=== PATIENT | male | born 1990 | race Caucasian/White ===

== ENCOUNTER 2020-09-25 02:44 | Emergency (ER) | payer OTHER ==
[2020-09-25] MEDS ORDERED: CODEINE 30MG/APAP 300MG TAB ONE (03:26)
--- NOTE | 2020-09-25 03:40 | EDPHYS ---
Physician Documentation [facility] Name: Vicente Elkins Age: 30 yrs Sex: Male : 1990 Arrival Date: 09/25/2020 Time: 02:49 Bed 20 Private MD: Denae Davis ED Physician Shiva Azar HPI: 09/25 03:26 This 30 yrs old Male presents to ER via Ambulatory with complaints of mh7 Toothache. 03:26 The patient presents with pain. The problem is located in the left lower posterior mh7 tooth. Onset: The symptoms/episode began/occurred 2 day(s) ago. Duration: The symptoms are continuous, and are unchanged since they started. Modifying factors: The symptoms are alleviated by nothing, the symptoms are aggravated by chewing, cold fluids, food. Associated signs and symptoms: Pertinent negatives: anorexia, chills, dysphagia, fever, inability to eat, nausea, redness in area, swelling, vomiting. Severity of symptoms: At their worst the symptoms were moderate, yesterday, in the emergency department the symptoms are unchanged. The patient has experienced similar episodes in the past, a few times. Historical: - Allergies: 03:08 No Known Allergies; rr5 - Home Meds: 03:08 None [Active]; rr5 - PMHx: 03:08 Hypertension; rr5 - PSHx: 03:08 foot surgery; rr5 - Immunization history:: Adult Immunizations unknown. - Social history:: Smoking status: Reported history of juuling and/or vaping. Patient uses alcohol, weekly. Patient/guardian denies using street drugs. ROS: 03:26 Constitutional: Negative for fever, chills, and weight loss, Eyes: Negative for injury, mh7 pain, redness, and discharge, ENT: Negative for injury, pain, and discharge, Neck: Negative for injury, pain, and swelling, Cardiovascular: Negative for chest pain, palpitations, and edema, Respiratory: Negative for shortness of breath, cough, wheezing, and pleuritic chest pain, Abdomen/GI: Negative for abdominal pain, nausea, vomiting, diarrhea, and constipation, Back: Negative for injury and pain, : Negative for injury, bleeding, discharge, and swelling, MS/Extremity: Negative for injury and deformity, Skin: Negative for injury, rash, and discoloration, Neuro: Negative for headache, weakness, numbness, tingling, and seizure, Psych: Negative for depression, anxiety, suicide ideation, homicidal ideation, and hallucinations, Allergy/Immunology: Negative for hives, rash, and allergies, Endocrine: Negative for neck swelling, polydipsia, polyuria, polyphagia, and marked weight changes, Hematologic/Lymphatic: Negative for swollen nodes, abnormal bleeding, and unusual bruising. Exam: 03:26 Head/Face: Normocephalic, atraumatic. Eyes: Pupils equal round and reactive to light, mh7 extra-ocular motions intact. Lids and lashes normal. Conjunctiva and sclera are non-icteric and not injected. Cornea within normal limits. Periorbital areas with no swelling, redness, or edema. 03:26 Neck: Trachea midline, no thyromegaly or masses palpated, and no cervical lymphadenopathy. Supple, full range of motion without nuchal rigidity, or vertebral point tenderness. No Meningismus. Chest/axilla: Normal chest wall appearance and motion. Nontender with no deformity. No lesions are appreciated. Cardiovascular: Regular rate and rhythm with a normal S1 and S2. No gallops, murmurs, or rubs. Normal PMI, no JVD. No pulse deficits. Respiratory: Lungs have equal breath sounds bilaterally, clear to auscultation and percussion. No rales, rhonchi or wheezes noted. No increased work of breathing, no retractions or nasal flaring. Abdomen/GI: Soft, non-tender, with normal bowel sounds. No distension or tympany. No guarding or rebound. No evidence of tenderness throughout. Back: No spinal tenderness. No costovertebral tenderness. Full range of motion. Skin: Warm, dry with normal turgor. Normal color with no rashes, no lesions, and no evidence of cellulitis. MS/ Extremity: Pulses equal, no cyanosis. Neurovascular intact. Full, normal range of motion. Neuro: Awake and alert, GCS 15, oriented to person, place, time, and situation. Cranial nerves II-XII grossly intact. Motor strength 5/5 in all extremities. Sensory grossly intact. Cerebellar exam normal. Normal gait. Psych: Awake, alert, with orientation to person, place and time. Behavior, mood, and affect are within normal limits. 03:26 Constitutional: The patient appears in no acute distress, alert, awake, uncomfortable. 03:26 ENT: External ear(s): are unremarkable, Nose: is normal, Mouth: is normal, Posterior pharynx: is normal, airway is patent, Dental exam: abscess, is not appreciated, avulsion, cellulitis, is not appreciated, dental caries, that is moderate, specifically in the upper right first molar (#3), lower left second molar (#18) and lower right first molar (#30), fractured teeth are noted, not appreciated, gum swelling, not appreciated, malocclusion, is not appreciated, missing teeth, not appreciated, pain, that is moderate, specifically in the lower left second molar (#18), Voice: is normal, Breath odor: is normal. Vital Signs: 03:00 BP 217 / 117; Pulse 94; Resp 22; Temp 98.2; Pulse Ox 99% ; Weight 172.37 kg; Height 5 rr5 ft. 11 in. (180.34 cm); Pain 7/10; 03:07 BP 183 / 109; Pulse 93; Resp 20; Pulse Ox 97% ; rr5 04:13 BP 168 / 102; Pulse 90; Resp 19; Pulse Ox 99% ; rr5 03:00 Body Mass Index 53.00 (172.37 kg, 180.34 cm) rr5 MDM: 03:26 Differential diagnosis: dental caries, gingivitis, dental abscess, pericoronitis, mh7 aphthous ulcers, acute necrotizing ulcerative gingivitis, gingivostomatitis. Data reviewed: vital signs, nurses notes. Data interpreted: Pulse oximetry: on room air is 97 %. Interpretation: normal. Counseling: I had a detailed discussion with the patient and/or guardian regarding: the historical points, exam findings, and any diagnostic results supporting the discharge/admit diagnosis, the need for outpatient follow up, a dentist, to return to the emergency department if symptoms worsen or persist or if there are any questions or concerns that arise at home. 03:38 Response to treatment: the patient's symptoms have markedly improved after treatment. 7 03:39 Patient medically screened. [facility] Administered Medications: 03:13 Drug: Tylenol #3 (300 mg-30 mg) 2 tabs {Note: rass 0.} Route: PO; rr5 04:15 Follow up: Response: No adverse reaction; Pain is decreased rr5 Disposition: 09/25/20 03:39 Discharged to Home. Impression: Dental caries. - Condition is Stable. - Discharge Instructions: Dental Pain, [id number], Dental Caries, [id number]. - Prescriptions for Amoxicillin 500 mg Oral Capsule - take 1 capsule by ORAL route every 8 hours for 10 days; 30 tablet. Tylenol- Codeine #3 300-30 mg Oral Tablet - take 2 tablets by ORAL route every 6 hours As needed; 15 tablet. - Medication Reconciliation Form, Thank You Letter, Antibiotic Education, Prescription Opioid Use form. - Follow up: Private Physician; When: 1 - 2 days; Reason: Worsening of condition, Recheck today's complaints, Continuance of care, Re-evaluation by your physician. Follow up: Saul Corneoj DDS; When: 1 - 2 days; Reason: Worsening of condition, Further diagnostic work-up, Recheck today's complaints. - Problem is an acute exacerbation. - Symptoms have improved. Signatures: Dex Palma RN RN rr5 Shiva Azar MD MD mh7 Corrections: (The following items were deleted from the chart) 04:37 03:39 09/25/2020 03:39 Discharged to Home. Impression: Dental caries. Condition is rr5 Stable. Forms are Medication Reconciliation Form, Thank You Letter, Antibiotic Education, Prescription Opioid Use. Follow up: Private Physician; When: 1 - 2 days; Reason: Worsening of condition, Recheck today's complaints, Continuance of care, Re-evaluation by your physician. Follow up: Saul Cornejo; When: 1 - 2 days; Reason: Worsening of condition, Further diagnostic work-up, Recheck today's complaints. Problem is an acute exacerbation. Symptoms have improved. mh7
--- NOTE | 2020-09-25 03:40 | ER ---
Nurse's Notes [facility] Name: Vicente Elkins Age: 30 yrs Sex: Male : 1990 Arrival Date: 09/25/2020 Time: 02:49 Bed 20 Private MD: Denae Davis Diagnosis: Dental caries Presentation: 09/25 03:00 Chief complaint: Patient states: my tooth is hurting started last Monday on and off rr5 pain going to my gums and underneath. I put oragel took ibuprofen and Tylenol but the pain is getting worse. Coronavirus screen: Client denies travel out of the [place] in the last 14 days. At this time, the client does not indicate any symptoms associated with coronavirus-19. Ebola Screen: Patient negative for fever greater than or equal to 101.5 degrees Fahrenheit, and additional compatible Ebola Virus Disease symptoms Patient denies exposure to infectious person. Patient denies travel to an Ebola-affected area in the 21 days before illness onset. Initial Sepsis Screen: Does the patient meet any 2 criteria? No. Patient's initial sepsis screen is negative. Does the patient have a suspected source of infection? No. Patient's initial sepsis screen is negative. Risk Assessment: Do you want to hurt yourself or someone else? Patient reports no desire to harm self or others. Onset of symptoms was September 23, 2020. 03:00 Method Of Arrival: Ambulatory rr5 03:00 Acuity: PUJA 4 rr5 Historical: - Allergies: 03:08 No Known Allergies; rr5 - Home Meds: 03:08 None [Active]; rr5 - PMHx: 03:08 Hypertension; rr5 - PSHx: 03:08 foot surgery; rr5 - Immunization history:: Adult Immunizations unknown. - Social history:: Smoking status: Reported history of juuling and/or vaping. Patient uses alcohol, weekly. Patient/guardian denies using street drugs. Screenin:10 Abuse screen: Denies threats or abuse. Denies injuries from another. Nutritional rr5 screening: No deficits noted. Tuberculosis screening: No symptoms or risk factors identified. Fall Risk None identified. Total Moore Fall Scale indicates No Risk (0-24 pts). Assessment: 03:10 General: Appears in no apparent distress. uncomfortable, Behavior is calm, cooperative, rr5 appropriate for age. 03:10 Pain: Complains of pain in mouth and lower left second molar (#18) Pain currently is 7 rr5 out of 10 on a pain scale. Quality of pain is described as aching, Pain began gradually, Is intermittent. Neuro: Level of Consciousness is awake, alert, obeys commands, Oriented to person, place, time. Cardiovascular: Capillary refill < 3 seconds Patient's skin is warm and dry. Respiratory: Airway is patent Respiratory effort is even, unlabored, Respiratory pattern is regular, symmetrical. GI: No signs and/or symptoms were reported involving the gastrointestinal system. : No signs and/or symptoms were reported regarding the genitourinary system. EENT: Dental caries noted in lower left second molar (#18) Reports pain. Derm: Skin is intact, is healthy with good turgor, Skin temperature is warm. Musculoskeletal: Capillary refill < 3 seconds. 03:55 Reassessment: Patient appears in no apparent distress at this time. Patient is alert, rr5 oriented x 3, equal unlabored respirations, skin warm/dry/pink. for discharge patient received T3 pill advised not to drive and call someone for his ride. Patient states symptoms have improved. 04:31 Reassessment: patient resting eyes closed breathing spontaneously awaiting for ride rr5 home. Vital Signs: 03:00 BP 217 / 117; Pulse 94; Resp 22; Temp 98.2; Pulse Ox 99% ; Weight 172.37 kg; Height 5 rr5 ft. 11 in. (180.34 cm); Pain 7/10; 03:07 BP 183 / 109; Pulse 93; Resp 20; Pulse Ox 97% ; rr5 04:13 BP 168 / 102; Pulse 90; Resp 19; Pulse Ox 99% ; rr5 03:00 Body Mass Index 53.00 (172.37 kg, 180.34 cm) rr5 ED Course: 02:49 Patient arrived in ED. mr 02:49 Denae Davis is Private Physician. mr 02:51 Dex Palma, CATHRYN is Primary Nurse. rr5 02:53 Shiva Azar MD is Attending Physician. 7 03:07 Triage completed. rr5 03:08 Arm band placed on right wrist. rr5 03:08 Patient has correct armband on for positive identification. Placed in gown. Bed in low rr5 position. Call light in reach. 03:38 Saul Cornejo DDS is Referral Physician. 7 04:14 No provider procedures requiring assistance completed. Patient did not have IV access rr5 during this emergency room visit. Administered Medications: 03:13 Drug: Tylenol #3 (300 mg-30 mg) 2 tabs {Note: rass 0.} Route: PO; rr5 04:15 Follow up: Response: No adverse reaction; Pain is decreased rr5 Outcome: 03:39 Discharge ordered by . mh7 04:15 Discharged to home ambulatory. rr5 04:15 Condition: stable 04:15 Discharge instructions given to patient, Instructed on discharge instructions, follow up and referral plans. medication usage, Demonstrated understanding of instructions, follow-up care, medications, Prescriptions given X 2. 04:37 Patient left the ED. rr5 Signatures: Kathe Brady mr PalmaDex RN RN rr5 Shiva Azar MD MD [facility]
[2020-09-25 07:39] VITALS: TEMP 98.2
[2020-09-25 07:43] VITALS: BP 168/102; O2SAT 99
== END 2020-09-25 04:37 | disposition home or self-care (01) ==
LOC: ER 02:44
DX: K02.9 Dental caries, unspecified (principal); I10 Essential (primary) hypertension
CPT/HCPCS: 99283